=== PATIENT | male | born 1955 | race Caucasian/White ===

== ENCOUNTER 2024-01-31 17:56 | Emergency (ER) | payer OTHER, SELFPAY ==
[2024-01-31 17:57] VITALS: BP 166/96
[2024-01-31 18:01] LABS: Glucose - Point of Care 110 mg/dl (70-99)
--- NOTE | 2024-01-31 18:31 | ED.GENMED ---
History of Present Illness
General
Chief Complaint: Blood Sugar Problem
Source: patient
Exam Limitations: none
Time Seen by Provider: 01/31/24 18:08
Nursing documentation reviewed up to this point in time: agreed with
History of Present Illness
History of Present Illness:
pt is a 68 y/o M
hh/o NIDDM
mounjaro, actos, jardiance, metformin
no dose changes in months
managed by endocrine
since last night around 10 pm has had 4 episodes of hypoglycemia into the 60s where his alarm went off
he had been asleep for 3 hours and got woken up by his alarm
he felt shaky like his sugar was low. he got up and ate some glucose wafers and drank gatorade and ate a cookie. he went back to bed and bg was up to 140
he woke up again to alarm at 5 am reading 60s
ate/wafers/drank juice etc/ate breakfast
stilll took his am meds, (actos, jardiance, metformin)
had another episode this afternoon dropping quickly 2 horus after eating to 70s and feeingg symtomatic
he also has had 1 week of uri sxs, fatigue, cough, chills, 'felt like i had the flu'
he has no fever
cough got better
no signfiicant GI symptoms
no alcohol use
Past History
Past History
ED Past Medical History: HTN, Hypercholesterolemia, NIDDM, Other (Migraines, chronic back pain, kidney stones, UTI, hypertension, TIA, depression, and history of broken ribs mini stroke, difficulty with balance) and Other (Diverticulosis, Gastritis)
ED Past Surgical History: Other (Patient has had lithotripsy and a stent placed for right kidney stone); Negative Cardiac
Social History
Tobacco: Vaping
Alcohol: None
Drug: Marijuana
Personal: Single
Living: with family
Employment: Public assistance
Family History
Family History: Other
Review of Systems
Review of Systems
Allergies reviewed?: Yes
All Other Systems: Not applicable
Phy Exam
Physical Exam
Physical Exam:
GENERAL: Alert , in no apparent distress
EYE: pupils equal and reactive
NECK: Supple
ENT: o/p clr, mmm.
CARDIAC: Regular rate and rhythm .
LUNGS: Clear breath sounds bilaterally, no acute respiratory distress, no wheezes/rales/rhonchi
ABDOMEN: Soft, without focal tenderness, no r/g, no cvat, normal bowel sounds
NEUROLOGICAL: Alert and oriented, no focal neuro deficits
SKIN: Warm and dry, skin intact.
MUSCULOSKELETAL: No edema, well perfused. neg issac's sign
PSYCH: Normal and appropriate interaction.
Course
Orders/Labs/Results
Orders:
Orders
01/31/24 18:28
CR Chest - 2 Views Urgent
Comment:
Reason For Exam: cough, illness
01/31/24 18:33
B-Hydroxybutyrate Urgent
COVID-19 Antigen Urgent
Source: Nasal Swab
Complete Blood Count/With Diff Urgent
Comprehensive Metabolic Panel Urgent
Influenza A+B Rapid Molecular Urgent
BETH Source: Nasal Swab
Specimen Description:
01/31/24 18:35
Urinalysis Reflex To Culture Urgent
Date Specimen was Collected: 01/31/24
Time Specimen was Collected: 18:33
01/31/24 20:16
Bedside Glucose- Treatment ONCE
Abnormal Lab Results
01/31/24 01/31/24 01/31/24
18:00 18:33 18:35
RBC 4.57 L 10^6/uL
(4.70-6.10)
MCH 32.4 H pg
(27.0-31.0)
Glucose 123 H mg/dl
(70-99)
Urine Glucose 3+ A
(Negative)
POC Glucose 110 H mg/dl
(70-99)
01/31/24
20:18
RBC
MCH
Glucose
Urine Glucose
POC Glucose 114 H mg/dl
(70-99)
01/31/24 18:33
01/31/24 18:33
Vital Signs
Initial and Last Documented VS:
Initial Vital Signs
Temp Pulse Resp BP Pulse Ox
98.1 F 87 18 166/96 97
01/31/24 17:57 01/31/24 17:57 01/31/24 17:57 01/31/24 17:57 01/31/24 17:57
Last Documented Vital Signs
Temp Pulse Resp BP Pulse Ox
98.1 F 78 18 119/82 94
01/31/24 17:57 01/31/24 19:03 01/31/24 17:57 01/31/24 19:22 01/31/24 19:23
MDM/Problems Addressed
Differential Diagnosis Includes:
hypoglycemia, acute illness, glucose monitor malfunction
MDM/Problems Addressed:
68 y/o M
NIDDM
usually says he wakes up with BG > 110s
he has noticed the past 3 mornings that his BG is < 100
overnight last night he had 2 times where he was alarmed his BG was low (it was always > 60);
he has eaten and then it has dropped again 2 hours later
he has not had any med changes/diet changes
he is not sure why this is happening
also has had viral illness for a week; resolving; no longer coughing, no fever; but he still feels tired overall
no CP, SOB
on exam vitals normal well appearing, lungs clear, no abdominal tenderness;
his accucheck was 110s
blood work reassuring
some glucose in his urine but no ketones
cxr clear indep reviewed no PNA
i had his bg checked, it was 114 and his monitor at the same time read 70; this is a big discrepancy and probalby is the culprit for the low readings
he can hold his meds tomorrow (actos specifically); see his PCP, has appt
he was offered obs overnight but declined
he will eat a meal at home and change his montior sensor
return precautions
d/w ed attending
*Critical Care Note
Total Time (30-74mins, 75-104mins- exclusive of procedures): Not Applicable
ED Attending Note
-
Portions of this chart may have been created with voice recognition software.� Occasional wrong word or��sound alike� substitutions may have occurred due to the inherent limitations of voice recognition software.
Discharge Plan
Departure
Patient Disposition: Home (Routine Discharge)
Date of Disposition: 01/31/24
Time of Disposition: 20:21
Patient with high blood pressure during this ER visit?: No
Condition: Fair
Covid-19: Not Applicable
Discharge Problem:
Uses self-applied continuous glucose monitoring device, Fatigue, Viral illness
Instructions: Low Blood Sugar, Adult (DC)
Prescriptions:
No Action
carvedilol [Coreg] 25 MG tablet
25 mg PO BID
glipizide 10 MG tablet extended release 24hr
10 mg PO BID
simvastatin 20 MG tablet
40 mg PO QPM
lisinopril [Zestril] 40 MG tablet
40 mg PO DAILY
pioglitazone 45 MG tablet
45 mg PO DAILY
mirtazapine 45 MG tablet
45 mg PO HS
escitalopram oxalate 20 MG tablet
20 mg PO DAILY
metformin 500 MG tablet extended release 24 hr
500 mg PO DAILY
hydrocodone-acetaminophen 1 TABLET tablet
1 tab PO Q4HPRN PRN (Reason: severe pain) Qty: 10 0RF
oxycodone-acetaminophen 5 MG/325 MG tablet
1 tab PO Q4HPRN PRN (Reason: pain) Qty: 7 0RF
lidocaine [Lidoderm] 5 % adhesive patch,medicated
1 patch topical DAILY Qty: 15 0RF
tramadol 50 mg tablet
50 mg PO Q8H PRN (Reason: pain) Qty: 10 0RF
Referrals:
Layla Lorenzo MD [Family Provider] -
Activity Restrictions/Additional Instructions:
. No signs of any obvious infection, you probably have a viral illness that is resolving. There was a discrepancy with our glucometer and your monitor, your monitor was showing 70s and our Accu-Chek machine was 114.
Please changes sensor when you get home. Eat a well-balanced meal before bed tonight. It is okay to skip your meds tomorrow morning. See your doctor as planned. Return for any concerns like fever, significant low blood sugar, passing out, chest
pain or shortness of breath etc.
Interventions
Interventions:
*Risk Screen - Suicide Last Done: 01/31/24 18:33
*General Assessment Last Done: 01/31/24 18:33
*Neglect/Abuse Screening Last Done: 01/31/24 18:33
ED- Fall Risk Assessment Last Done: 01/31/24 18:33
*ED COVID-19 Vaccine History Last Done: 01/31/24 18:33
ED- Neurological Assessment Last Done: 01/31/24 18:33
Discharge Date and Time
Print Language: GREENLANDIC
[2024-01-31 18:33] VITALS: BMI 21.8
[2024-01-31 18:46] VITALS: BP 123/74
[2024-01-31 18:53] LABS: % Basophils 0.6 % (0-2); % Immature Granulocytes 0.3 % (0-0.5); % Lymphocytes 30.1 % (20.5-51.1); % Monocytes 8.5 % (1.7-9.3); % Neutrophils 57.5 % (42.2-75.2); Absolute Eosinophils 0.2 10^3/uL (0-0.7); Absolute Lymphocytes 1.9 10^3/uL (1.2-3.4); Absolute Monocytes 0.5 10^3/uL (0.1-0.6); Absolute Neutrophils 3.6 10^3/uL (1.4-6.5); Hematocrit 40.7 % (39.0-52.0); Hemoglobin 14.8 g/dL (13.0-18.0); Mean Corp Hgb Conc. 36.4 g/dL (33.0-37.0); Mean Corpuscular Hgb 32.4 pg (27.0-31.0); Mean Corpuscular Volume 89.1 fL (80.0-94.0); Mean Platelet Volume 8.7 fL (7.4-10.4); Nucleated Red Blood Cells % 0 % (-); Platelet Count 198 10^3/uL (130-400); Red Blood Cell Count 4.57 10^6/uL (4.70-6.10); Red Cell Dist. Width 13.2 % (11.5-14.5); White Blood Cell Count 6.3 10^3/uL (4.8-10.8)
[2024-01-31 18:54] LABS: Urine Albumin Negative (Neg - Trace); Urine Bilirubin Negative (Negative); Urine Character Clear (Clear); Urine Color Yellow; Urine Glucose 3+ (Negative); Urine Ketone Negative (Negative); Urine Leukocyte Negative (Negative); Urine Nitrite Negative (Negative); Urine Occult Blood Negative (Negative); Urine Specific Gravity 1.015 (<1.030); Urine Urobilinogen Negative (Neg - 1+)
[2024-01-31 19:00] VITALS: BP 124/76
[2024-01-31 19:12] LABS: COVID-19 Antigen Negative (Negative)
[2024-01-31 19:16] LABS: ALT (SGPT) 20 U/L (0-50); AST (SGOT) 22 U/L (17-59); Albumin 4.8 g/dl (3.5-5.0); Alkaline Phosphatase 66 U/L (38-126); Blood Urea Nitrogen 18 mg/dl (9-20); Calcium 9.9 mg/dl (8.4-10.2); Carbon Dioxide 28 mmol/L (22-30); Chloride 100 mmol/L (98-107); Estimated Creatinine Clearance 81 ml/min; Glucose 123 mg/dl (70-99); Potassium 4.6 mmol/L (3.5-5.1); Sodium 142 mmol/L (135-145); Total Bilirubin 0.5 mg/dl (0.2-1.3); Total Protein 7.8 g/dl (6.3-8.2); eGFR > 60.00
[2024-01-31 19:22] VITALS: BP 119/82
[2024-01-31 19:22] LABS: B-Hydroxybutyrate 0.12 mmol/L (0.02-0.27)
[2024-01-31 20:21] LABS: Glucose - Point of Care 114 mg/dl (70-99)
[2024-01-31 20:44] VITALS: BP 122/81
== END 2024-01-31 20:45 | disposition home or self-care (01) ==
LOC: EMR 17:56
PROVIDERS: Physician Assistant; EMERGENCY PHYSICIAN Student in an Organized Health Care Education/Training Program; FAMILY PHYSICIAN Emergency Medicine
DX: B34.9 Viral infection, unspecified (principal); R53.83 Other fatigue; E11.649 Type 2 diabetes mellitus with hypoglycemia without coma; Z11.52 Encounter for screening for COVID-19; E78.00 Pure hypercholesterolemia, unspecified; I10 Essential (primary) hypertension; G43.909 Migraine, unspecified, not intractable, without status migrainosus; G89.29 Other chronic pain; M54.9 Dorsalgia, unspecified; K57.90 Diverticulosis of intestine, part unspecified, without perforation or abscess without bleeding; F32.A Depression, unspecified; F17.290 Nicotine dependence, other tobacco product, uncomplicated; Z87.440 Personal history of urinary (tract) infections; Z87.442 Personal history of urinary calculi; Z86.73 Personal history of transient ischemic attack (TIA), and cerebral infarction without residual deficits; Z79.84 Long term (current) use of oral hypoglycemic drugs; Z79.899 Other long term (current) drug therapy; Z88.8 Allergy status to other drugs, medicaments and biological substances
CPT/HCPCS: 99284; 71046; 80053; 81003; 82010; 82962; 85025; 87502; 87811